=== PATIENT | female | born 1955 | race Caucasian/White ===

== ENCOUNTER 2018-11-23 20:25 | Emergency (ER) | payer MEDICARE, BC ==
[~2018-11-23] VITALS: Ht 152.4 cm; Wt 104.3 kg
[~2018-11-23 20:25] MED LIST: ALBUTEROL2.5 MG/0.5 INH; ASPIRIN325 PO; CLARITIN10 MG PO; DIPHENHIST50 MG PO; ESTRADIOL 1 MG T1 M1 PO; FARXIGA10 MG PO; FLEXERIL PO; HOME MEDICATION PO; HOME MEDICATION SUBQ; LACTAID3000 UNI1 PO; LACTAID3000 UNIT PO; LEVAQUIN 500 M500 M2 PO; LEVOTHYROXIN0.075 MG PO; LEVOTHYROXINE0.05 MG PO; LIDODERM 5%1 PATC1 TRANSDERM; NAFCILLIN2 GM/100 M IV; NEURONTIN 300300 M1 PO; NORCO 10-325 T1 EACH PO; OMEPRAZOLE40 MG PO; PERCOCET PO; PREDNISONE 10 M10 MG PO; PROAIR HFA8.5 GM INH; TRADJENTA5 MG; TRADJENTA5 MG PO; TRAMADOL 50 MG50 MG PO; TRESIBA FL100 UNIT/1 SQ; VITAMIN D 5050000 I1 PO; VITAMIN D2000 UNIT PO; VOLTAREN GEL 1100 G2 TOP; WELLBUTRIN SR150 MG PO; XARELTO10 MG PO; ZOLOFT100 MG PO; ZYRTEC10 M5 PO
[2018-11-23] MEDS ORDERED: ZANTAC 150MG T150 MG PO (20:40)
[2018-11-23] MEDS ORDERED: ASPIR 8181 MG PO (20:41)
[2018-11-23] MEDS ORDERED: NEXIUM40 MG PO (20:41)
[2018-11-23] MEDS ORDERED: PROTONIX40 M1 PO (20:42)
[2018-11-23] MEDS ORDERED: IRON325 PO (20:42)
[2018-11-23] MEDS ORDERED: FARXIGA10 MG PO (20:43)
[2018-11-23] MEDS ORDERED: TRESIBA100 UNIT/1 SUBQ (20:44)
[2018-11-23] MEDS ORDERED: NEURONTIN 300300 M1 PO (20:45)
[2018-11-23] MEDS ORDERED: ZANAFLEX4 MG PO (21:51)
[2018-11-23] MEDS ORDERED: NABUMETONE 750750 M1 PO (21:51)
[2018-11-23] MEDS ORDERED: NORCO 5-325 TA1 EAC1 PO (21:51)
[2018-11-23 22:20] VITALS: BP 147/58
[2018-11-28] MEDS ORDERED: SYNTHROID75 MCG PO (10:29)
[2018-11-28] MEDS ORDERED: APAP650 PO (10:30)
== END 2018-11-23 22:36 | disposition home or self-care (01) ==
LOC: M.ERS 20:25
DX: S20.211A Contusion of right front wall of thorax, initial encounter (principal); E11.9 Type 2 diabetes mellitus without complications; E03.9 Hypothyroidism, unspecified; K21.9 Gastro-esophageal reflux disease without esophagitis; F32.9 Major depressive disorder, single episode, unspecified; J45.909 Unspecified asthma, uncomplicated; Z96.641 Presence of right artificial hip joint; Z88.1 Allergy status to other antibiotic agents; Z88.5 Allergy status to narcotic agent; Z88.8 Allergy status to other drugs, medicaments and biological substances; W01.190A Fall on same level from slipping, tripping and stumbling with subsequent striking against furniture, initial encounter; Y93.89 Activity, other specified; Y92.89 Other specified places as the place of occurrence of the external cause; Y99.8 Other external cause status

== ENCOUNTER 2018-12-18 07:43 | Inpatient (IN) | payer MEDICARE, BC ==
[2018-12-06 09:03] LABS: ABSOLUTE BASOPHILS 0.1 thou/uL (0.0-0.2); ABSOLUTE EOSINOPHILS 0.3 thou/uL (0.0-0.7); ABSOLUTE LYMPHOCYTES 1.4 thou/uL (0.8-5.3); ABSOLUTE MONOCYTES 0.5 thou/uL (0.0-1.2); BASOPHILS 1.3 %; EOSINOPHILS 4.2 %; HEMATOCRIT 41.8 % (37.0-47.0); HEMOGLOBIN 14.1 gm/dL (12.0-15.0); LYMPHOCYTES 19.1 %; MCH 30.2 pg (26.0-34.0); MCHC 33.6 g/dL (28.0-37.0); MCV 89.9 fL (80.0-100.0); MONOCYTES 6.9 %; MPV 7.5 fl. (7.2-11.1); NUCLEATED RBCS 0 /100WBC; PLATELET COUNT* 194 thou/uL (150-400); POLYS 68.5 %; RBC 4.65 mil/uL (4.20-5.00); RDW-CV 15.1 % (10.5-14.5); WBC 7.3 thou/uL (4.0-11.0)
[2018-12-06 09:32] LABS: ALBUMIN 3.7 g/dL (3.4-5.0); CALCIUM 9.4 mg/dL (8.5-10.1); POTASSIUM 4.1 mmol/L (3.5-5.1); TOTAL BILIRUBIN 0.4 mg/dL (<0.1-1.0); TOTAL PROTEIN 7.9 g/dL (6.4-8.2)
[2018-12-06 11:05] LABS: ESR (SEDRATE) 40 mm/hr (0-30)
--- NOTE | 2018-12-06 12:10 | EKG ---
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 : 1955 Requested By: Lonnie Montoya Order Number: [id number] Reading MD: Juan Christina Measurements Intervals [place] Rate: 79 P: 72 VT: 189 QRS: 71 QRSD: 90 T: 63 QT: 382 QTc: 438 Interpretive Statements Sinus rhythm Borderline T abnormalities, anterior leads Compared to ECG 08/23/2016 16:24:56 T-wave abnormality now present Electronically Signed On 12-06-2018 12:10:05 CDT by Juan Christina [email or web address] <ELECTRONICALLY SIGNED> By: Juan Christina MD, [facility] 12/06/18 1210 0940 0940 Juan Christina MD, FACC /EPI
[~2018-12-18] VITALS: Ht 152.4 cm; Wt 107.0 kg
[~2018-12-18 07:43] MED LIST changes: +APAP650 PO; +ASPIR 8181 MG PO; +IRON325 PO; +NABUMETONE 750750 M1 PO; +NEXIUM40 MG PO; +NORCO 5-325 TA1 EAC1 PO; +PROTONIX40 M1 PO; +SYNTHROID75 MCG PO; +TRESIBA100 UNIT/1 SUBQ; -VITAMIN D 5050000 I1 PO; +VITAMIN D50000 UNIT PO; +ZANAFLEX4 MG PO; +ZANTAC 150MG T150 MG PO
[2018-12-18 16:58] VITALS: BP 145/86
[2018-12-18 19:30] VITALS: BP 104/76
[2018-12-19] VITALS: BP 106/57
[2018-12-19 04:05] VITALS: BP 100/49
[2018-12-19 04:56] LABS: HEMATOCRIT 31.6 % (37.0-47.0); HEMOGLOBIN 10.3 gm/dL (12.0-15.0)
[2018-12-19 08:00] VITALS: BP 103/46
--- NOTE | 2018-12-19 08:10 | OP ---
[address] [address] OPERATIVE REPORT Name: CAROLANN THOMAS Room: [address] IN M.R.#: [id number] Admission: 12/18/18 Attend Phys: Natasha Patrick Discharge: Date of : 57 Report #: [id number] THIS REPORT FOR: //name// CC: Ariana Gonzáles DATE OF SERVICE: 12/18/2018 PREOPERATIVE DIAGNOSES: Severe tricompartmental varus deformity, osteoarthritis of the left knee. POSTOPERATIVE DIAGNOSES: Severe tricompartmental varus deformity, osteoarthritis of the left knee. SURGERY PERFORMED: Ranjit Persona medial congruent cemented three component left total knee arthroplasty femur #7, D is the tibia size, 32 patella with a 12 polyethylene. SURGEON: Lonnie Montoya DO STATE ASSESSED PROPERTIES DIRECTOR: Dr. Rowan for the complexity of the case and the scarring of tissues. SECOND CREDIT REPORTING CLERK: Jose Angel Sandoval DO, resident. ANESTHESIA: General anesthetic followed with an intraoperative posterior capsular cocktail and postoperative adductor block by Anesthesia. ANTIBIOTICS: The patient did receive vancomycin 1 gram preoperatively IV. DRAINS: She has no drains. ESTIMATED BLOOD LOSS: 300 mL. COMPLICATIONS: She has no complications. SPECIMENS: None. GROSS FINDINGS: At the time of preoperative surgery, the varus deformity, tricompartmental osteoarthritis was noted on the left knee region with intraoperative findings correlated with severe osteophytic disease across the femur, tibia and the patella. The patient had post-placement of the total knee arthroplasty, a well tracking patella, full range of motion and a very stable arc of motion from 0-120. The patient did not have any other clinical findings otherwise. [place] [id number] OPERATIVE REPORT Name: WILLIAMCAROLANN Room: [address] M.R.#: [id number] Admission: 12/18/18 Attend Phys: Natasha Patrick Discharge: Date of : 57 Report #: [id number] SURGERY IN DETAIL: The patient was taken to the operating room and placed on the table, given the benefit of a general anesthetic. She had a well-padded tourniquet placed high on her left thigh. She underwent a Hibiclens scrub and chlorhexidine prep and sterile draping for her left knee. Timeout was called and verified by everyone in the room for the left knee. Surgery began without a tourniquet, so I could maintain hemostasis. Then, later upon prior to cementing, I inflated the tourniquet. At this point in time, a midline incision was made with a 10 blade scalpel through skin and subcutaneous tissue. Second medial parapatellar capsular incision was made with a new knife blade. The patella was everted and the knee flexed to 90 degrees. I did maintain hemostasis at all times. All excess osteophytes were rongeured off through all areas femur, tibia and patella. At this point in time, distal femoral drill hole was made. At this time, I did elect to do a distal femoral cut on the left knee, 5-degree angle with an additional 1 mm of bone off the tibia secondary to 7 degrees extensor lag. Once the distal femur was cut, I used an external guide across the angle of the tibia, then proximally I resected 10 mm wafer of bone measuring off the high lateral side. The bone block was secured in place that wafer of bone was cut. I put in a trial extension spacer, it fit excellent with good stability. Surgery continued. Now, going back to the femoral side and I sized it to a #7 appropriately. The drill hole was made and a 4-in-1 block was made and all remaining cuts were made on the femur with the oscillating saw. All excess bone was removed. At this point in time, I went down and sized to the tibia to a D. Once this was accomplished, the tibial baseplate was secured in place by screws. I checked the alignment both in flexion and extension. It was at the center of the ankle. Surgery continued, then trialed the femoral component a 7 and a 10 mm polyethylene trial was inserted. It actually fit quite nicely, but a little bit of play in it, so I elected an 11 and to go up to a 12. At this point in time, I did do an Esmarch. I did go ahead and reamed the patella to a smooth surface, sized it 32. Drill holes were drilled, and the patellar trial was next placed and the patella tracked well. Surgery continued with Esmarch in this extremity. On the left side, a tourniquet inflated to 300 mmHg. The distal femur was drilled in routine fashion followed with now the tibia, it was reamed and appropriately cruciform cut was made as well. All trial components were removed. At this point in time, I did a pulsatile lavage irrigation in the knee. I drilled the tibia on the medial side as it was down to sclerotic bone, so I got better interdigitation of the cement. 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 At this point in time, the first batch of cement was mixed. The vancomycin did not mix properly, so I had to do a second batch of vancomycin cement, which now mixed excellent and I did a one stage cementing technique with the tibia, the femur and removed all excess cement, held the leg in extension. The patella was cemented likewise. Once all cement was hardened, I put her through an arc of motion, the 12; actually I felt like it was very secure and very stable through the entire arc of motion that I removed the trial polyethylene and a pulsatile lavage irrigated this knee, looked for any excess cement or bony fragments. They were removed if there were any. The 12 [place] [id number] OPERATIVE REPORT Name: CAROLANN THOMAS SENTHIL Room: [address] [place] .R.#: [id number] Admission: 12/18/18 Attend Phys: Natasha Patrick Discharge: Date of : 57 Report #: [id number] vitamin E polyethylene was cemented was clicked into position in the tibia tray. The leg was placed through full arc of motion again very stable in all planes in extension, mid flexion and flexion. The patella tracked well. At this point in time, the patient had normal saline washed. Prior to putting the polyethylene in, I did do a posterior capsular injection in routine fashion. TXA solution was placed to the knee for 3 minutes, tourniquet was released and easily hemostasis was maintained. The capsule was closed with #1 Vicryl, 1 TiCron in [id number] fashion, subcutaneous tissues, 2-0 Monocryl followed with a running Stratafix and Dermabond to the skin with a Mepilex dressing. This patient was transferred off the table, taken to recovery in stable condition. I attest I was present for all critical aspects of surgery. Needle, instrument, and sponge counts correct. <ELECTRONICALLY SIGNED> By: Lonnie Montoya DO 12/19/18 0810 1331 1533Caldo Montoya DO /nt
[2018-12-19 16:00] VITALS: BP 143/74
[2018-12-19 19:35] VITALS: BP 107/51
[2018-12-20 00:20] VITALS: BP 136/69
[2018-12-20 03:45] LABS: HEMATOCRIT 29.4 % (37.0-47.0); HEMOGLOBIN 9.7 gm/dL (12.0-15.0)
[2018-12-20 04:00] VITALS: BP 107/41
[2018-12-20 08:51] VITALS: BP 115/59
[2018-12-20 16:30] VITALS: BP 160/78
[2018-12-20 20:30] VITALS: BP 91/55
[2018-12-21] VITALS: BP 113/45
[2018-12-21 04:00] VITALS: BP 113/43
[2018-12-21 08:05] VITALS: BP 126/100
[2018-12-21 11:30] LABS: ABSOLUTE BASOPHILS 0.1 thou/uL (0.0-0.2); ABSOLUTE EOSINOPHILS 0.4 thou/uL (0.0-0.7); ABSOLUTE LYMPHOCYTES 1.3 thou/uL (0.8-5.3); ABSOLUTE NEUTROPHILS 8.9 thou/uL (1.6-8.1); BASOPHILS 0.9 %; EOSINOPHILS 3.1 %; HEMATOCRIT 28.9 % (37.0-47.0); HEMOGLOBIN 9.4 gm/dL (12.0-15.0); MCHC 32.7 g/dL (28.0-37.0); MCV 91.8 fL (80.0-100.0); MONOCYTES 8.8 %; MPV 7.5 fl. (7.2-11.1); NUCLEATED RBCS 0 /100WBC; PLATELET COUNT* 192 thou/uL (150-400); POLYS 76.2 %; RBC 3.14 mil/uL (4.20-5.00); RDW-CV 14.9 % (10.5-14.5); WBC 11.7 thou/uL (4.0-11.0)
[2018-12-21 11:46] LABS: ALBUMIN 2.9 g/dL (3.4-5.0); CALCIUM 8.7 mg/dL (8.5-10.1); CREATININE 1.1 mg/dL (0.6-1.3); POTASSIUM 3.2 mmol/L (3.5-5.1); TOTAL BILIRUBIN 0.5 mg/dL (<0.1-1.0); TOTAL PROTEIN 7.2 g/dL (6.4-8.2)
[2018-12-21] MEDS ORDERED: NORCO 5-325 TA1 EAC1 PO (13:09)
[2018-12-21] MEDS ORDERED: ULTRAM 50MG TAB50 MG PO (13:11)
[2018-12-21] MEDS ORDERED: ELIQUIS2.5 MG PO (13:12)
[2018-12-21 13:28] VITALS: BP 113/43
== END 2018-12-21 14:25 | DRG 469 ==
LOC: M.PRE 07:43 → M.ORTHSURG 09:49 → M.TBA 09:49 → M.PRE 10:43 → M.ORTHSURG 15:09
PROVIDERS: Internal Medicine; Orthopaedic Surgery; ADMIT Internal Medicine
PROC: 0SRD0J9 Replacement of Left Knee Joint with Synthetic Substitute, Cemented, Open Approach (ICD-10-PCS; principal; 2018-12-18)
DX: M17.12 Unilateral primary osteoarthritis, left knee (principal); G92 Toxic encephalopathy; D62 Acute posthemorrhagic anemia; R44.3 Hallucinations, unspecified; Z68.42 Body mass index [BMI] 45.0-49.9, adult; E03.9 Hypothyroidism, unspecified; E11.9 Type 2 diabetes mellitus without complications; K21.9 Gastro-esophageal reflux disease without esophagitis; F32.9 Major depressive disorder, single episode, unspecified; J45.909 Unspecified asthma, uncomplicated; E66.01 Morbid (severe) obesity due to excess calories; G47.33 Obstructive sleep apnea (adult) (pediatric); Z96.651 Presence of right artificial knee joint; Z88.8 Allergy status to other drugs, medicaments and biological substances; Z88.6 Allergy status to analgesic agent; Z88.1 Allergy status to other antibiotic agents; Z91.040 Latex allergy status; Z90.710 Acquired absence of both cervix and uterus; Z82.49 Family history of ischemic heart disease and other diseases of the circulatory system; Z91.19 Patient's noncompliance with other medical treatment and regimen; Z79.899 Other long term (current) drug therapy

== ENCOUNTER → 2019-02-08 | Outpatient (CLI) | payer MEDICARE, BC ==
[~2019-02-08] MED LIST changes: +ELIQUIS2.5 MG PO; +ULTRAM 50MG TAB50 MG PO
[2019-02-08 11:58] LABS: HEMATOCRIT 39.2 % (37.0-47.0); HEMOGLOBIN 12.7 gm/dL (12.0-15.0); MCH 28.7 pg (26.0-34.0); MCHC 32.5 g/dL (28.0-37.0); MCV 88.2 fL (80.0-100.0); MPV 7.7 fl. (7.2-11.1); RBC 4.45 mil/uL (4.20-5.00); RDW-CV 15.2 % (10.5-14.5); WBC 8.4 thou/uL (4.0-11.0)
== END ==
LOC: M.LAB 11:40
PROVIDERS: Orthopaedic Surgery
DX: T84.84XA Pain due to internal orthopedic prosthetic devices, implants and grafts, initial encounter (principal); Y83.8 Other surgical procedures as the cause of abnormal reaction of the patient, or of later complication, without mention of misadventure at the time of the procedure; Y92.89 Other specified places as the place of occurrence of the external cause

== ENCOUNTER → 2019-02-21 | Outpatient (CLI) | payer MEDICARE, BC ==
[2019-02-21 10:49] LABS: HEMATOCRIT 40.3 % (37.0-47.0); HEMOGLOBIN 13.2 gm/dL (12.0-15.0); MCH 28.4 pg (26.0-34.0); MCHC 32.7 g/dL (28.0-37.0); MCV 86.8 fL (80.0-100.0); MPV 7.6 fl. (7.2-11.1); RBC 4.64 mil/uL (4.20-5.00); RDW-CV 15.3 % (10.5-14.5); WBC 8.6 thou/uL (4.0-11.0)
== END ==
LOC: M.LAB 10:10
PROVIDERS: Orthopaedic Surgery
DX: M25.562 Pain in left knee (principal)